=== PATIENT | male | born 2000 | race Caucasian/White ===

== ENCOUNTER 2018-06-01 17:51 | Emergency (ER) | payer OTHER ==
[2018-06-01] MEDS ORDERED: LORazepam 1 MG TAB PO ONE (18:25)
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
[2018-06-01 19:03] LABS: PLATELET COUNT 273 10^3/uL (150-400)
[2018-06-01] MEDS ORDERED: LORAZEPAM 1 MG PREPACK#4 BTL TAKEHOME ONE (22:29)
--- NOTE | 2018-06-01 22:41 | ASMTLCPROG ---
Notes Note: Notes: TLC consult. Met with pt. to offer referrals. Pt expressed a desire for d/c. Pt is denying any thoughts of self harm, harm to others and does not exhibit psychotic symptoms. Pt reports he took several Adderral pills early this am from a friend. Pt indicated he came to the ED due to concerns about his rapid heart beat. Pt declines need for substance abuse treatment. He may consider mental health support. Pt was provided with referrals to [facility] since pt is a student. [facility] also provided referral for 24 hour crisis center. Pt is wanting d/c so he can go home, sleep and attend am class tomorrow. Pt declined need for inpt treatment including SA treatment. Pt was discharged by ED Physician. He will return home in an Uber. Date Signed: 06/01/2018 10:40 PM Electronically Signed By:Yen Rolon
[2018-06-01 22:47] VITALS: BP 136/78
== END 2018-06-01 22:50 | disposition home or self-care (01) ==
DX: F31.9 Bipolar disorder, unspecified (principal); F15.90 Other stimulant use, unspecified, uncomplicated
CPT/HCPCS: 80305; G0480

== ENCOUNTER 2018-07-06 12:40 | Emergency (ER) | payer OTHER ==
--- NOTE | 2018-07-06 12:55 | EDPHY ---
H & P Smoking Status: Never smoked Time Seen by Provider: 07/06/18 12:54 HPI/ROS: CHIEF COMPLAINT: Mental health evaluation HISTORY OF PRESENT ILLNESS: Brought in by his mother. He was seen in our ED on June 01. His mother was called on Wednesday because the patient was slurring his speech and a roommates parents notified her. She took him to mental health outpatient emergency evaluation on Wednesday and they were referred for substance evaluation. Said he sometimes has suicidal thoughts but none currently and none at the time of that evaluation. This week he says he has been taking hydrocodone and possibly Xanax and not going to class and his mother says that his roommates describe him barely being able to stand up and walk. He is brought in because the mother is concerned he is gravely disabled from self medication with opioids and benzodiazepines for his bipolar disorder. Patient denies suicidal or homicidal ideation or hallucinations. He has taken Zyprexa in the past but says he has not for weeks or months. REVIEW OF SYSTEMS: Eye: no change in vision ENT: no sore throat Cardiac: no chest pain or syncope Pulmonary: no cough or SOB Abdomen: no vomiting, diarrhea, abdominal pain Musculoskeletal: no back pain or neck pain. Skin: Some scratches and abrasions Neuro: no headache Constitutional: no fever : no urinary symptoms A comprehensive 10 point review of systems is otherwise negative aside from elements mentioned in the history of present illness. PAST MEDICAL HISTORY: Bipolar disorder, previous ED visit 06/01/2018 Social history: Denies drugs or alcohol except for what is described in the HPI , here with his mother General Appearance: Alert and conversant, cooperative. Eyes: No scleral icterus. ENT, Mouth: Normal mucous membranes. No tongue laceration or abrasion. Respiratory: Normal respiratory effort, breath sounds equal, lungs are clear to auscultation. Cardiovascular: Regular rate and rhythm. Gastrointestinal: Abdomen is soft and non tender. Neurological: Alert, face symmetric, slightly slurred speech. His gait is slightly ataxic although his Romberg is negative and he is able to stand without assistance. Skin: Some superficial scratches and abrasions with no suturable lacerations or cellulitis. Musculoskeletal: No peripheral edema. Psychiatric: Denies homicidal or suicidal ideation, or hallucinations. Emergency Department course/MDM: Plan for screening labs and mental health evaluation. 1416: discussed with Yen lead radiation therapist. 1919: Patient is placed on a mental incapacity hold. His surrogate decision maker his mother would like him to be held for mental health evaluation which I think is appropriate. He has slurred speech and a toxicology screen positive for benzodiazepine and opioids, mental health evaluation after the effect of the drugs has decreased. Signed out to Marta with plan for mental health evaluation. (Terrell Mata) Constitutional: Initial Vital Signs Temperature (C) 37 C 07/06/18 12:45 Heart Rate 98 07/06/18 12:45 Respiratory Rate 16 07/06/18 12:45 Blood Pressure 105/75 07/06/18 12:45 O2 Sat (%) 94 07/06/18 12:45 O2 Delivery Mode Room Air Allergies/Adverse Reactions: peanut Allergy (Verified 07/06/18 12:44) Home Medications: Medication Instructions Recorded Vicodin 5-300 mg Tablet 07/06/18 Xanax 07/06/18 Zyprexa 07/06/18 Medical Decision Making ED Course/Re-evaluation: Patient's care was signed over to me. I see the patient at 10:00 p.m.. He is somewhat agitated in asking for medication to help him sleep. He will be given and Ativan and Zyprexa. I understand mental health evaluation will be in the morning. (Gustavo Lozano) No acute events overnight. 7:[address] over [address]. Gay. (Vahe Valentin) 7:00 a.m.-this patient was seen and evaluated by mental health. [place] appropriate for outpatient treatment of polysubstance abuse and bipolar disorder. He is not suicidal or homicidal. He will go home with his father. I agree with this plan. (Ludmila Gay) Care Turn Over: Care turned over to Dr. Valentin at 10:45 p.m. (Gustavo Lozano) - Data Points Laboratory Results: Laboratory Results 07/06/18 14:10 07/06/18 14:10 Medications Given: Discontinued Medications Lorazepam (Ativan) 1 mg PO EDNOW ONE Stop: 07/06/18 22:13 Last Admin: 07/06/18 22:16 Dose: 1 mg Olanzapine (Zyprexa Zydis) 5 mg PO EDNOW ONE Stop: 07/06/18 22:13 Last Admin: 07/06/18 22:16 Dose: 5 mg Departure - Departure Disposition: Home, Routine, Self-Care Clinical Impression: Polysubstance abuse Bipolar disorder Qualifiers: Active/Remission status: remission status unspecified Qualified Code(s): F31.9 - Bipolar disorder, unspecified Condition: Good Instructions: Bipolar Disorder (ED), Polysubstance Abuse (ED) Additional Instructions: Please avoid using illicit drugs or medications that are not prescribed for you. Return with any concerns. Follow-up with mental health as directed. Referrals: [facility],. [Clinic] - As per Instructions
[2018-07-06 14:22] LABS: PLATELET COUNT 207 10^3/uL (150-400)
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
--- NOTE | 2018-07-06 16:26 | ASMTTCLDSP ---
TLC Discharge Disposition Disposition: Answers: Discharge Disposition Notes: Notes: In consultation with [facility] ED, ED, [place] Remigio Zaman it was concurred that pt does not appear to meet 27-65 criteria requiring psychiatric hospitalization as pt does not appear to be an imminent risk of harm to self/others/gravely disabled due to a mental illness condition. Pt was offered voluntary mental health admission yet pt declined. Pt expressed an interest in voluntary admission for detox and is specifically interested in [facility]. Discharge Concerns/Recommendations: Notes: Pt is interested in voluntary detox Pt was provided with referrals and expressed interest in seeking treatment at [facility]. Pt was also provided with referral to [facility] as an alternative option. Date Signed: 07/06/2018 04:26 PM Electronically Signed By:Yen Rolon
--- NOTE | 2018-07-06 17:01 | ASMTLCPROG ---
Notes Note: Notes: Please disregard prior TLC evaluation and dispo documented on 07/06/18. Documentation for wrong pt. Date Signed: 07/06/2018 05:00 PM Electronically Signed By:Yen Rolon
[2018-07-06] MEDS ORDERED: LORazepam 1 MG TAB PO ONE (22:12)
[2018-07-06] MEDS ORDERED: OLANZapine DISINTEGR 5 MG TAB PO ONE (22:12)
[2018-07-07 07:45] VITALS: BP 120/81
--- NOTE | 2018-07-07 08:14 | ASMTTCLDSP ---
TLC Discharge Disposition Disposition: Answers: Discharge If Answers: Yes DISCHARGED: Patient/family given suicide hotline info & SAMHSA brochure? Disposition Notes: Notes: Pt stated commitment or ability to keep self safe, denied thoughts of self harm or harm to others. Pt expressed a desire to f/u with [facility] psychiatrist, Elliott Dawson MD and has next appointment on 07/13/18 at 10:30 a.m. Pt was given local hotline information and SAMHSA brochure After an Attempt and encouraged to follow up with [facility] psychiatrist. Discharge Concerns/Recommendations: Notes: In consultation with [facility] ED physician, Ludmila Gay MD, Dr. Gay concurred that pt does not appear to meet 27-65 criteria requiring psychiatric hospitalization as pt does not appear to be an imminent risk of harm to self/others/gravely disabled due to a mental illness condition. Was patient given the Answers: Not applicable Inpatient Behavioral Health Prohibited Belongings List while in the ED? Date Signed: 07/07/2018 08:14 AM Electronically Signed By:Blayne Hall
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
== END 2018-07-07 07:44 | disposition home or self-care (01) ==
DX: R47.81 Slurred speech (principal); F31.9 Bipolar disorder, unspecified; Z79.899 Other long term (current) drug therapy
CPT/HCPCS: 80305; G0480

== ENCOUNTER 2018-07-07 17:15 | Emergency (ER) | payer OTHER ==
[2018-07-07] MEDS ORDERED: NS 1,000 ML IV ONE (18:21)
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
[2018-07-07 18:57] LABS: PLATELET COUNT 206 10^3/uL (150-400)
--- NOTE | 2018-07-07 19:41 | CPEKG ---
Test Reason : OPEN Blood Pressure : / mmHG Vent. Rate : 080 BPM Atrial Rate : 080 BPM P-R Int : 148 ms QRS Dur : 105 ms QT Int : 362 ms P-R-T Axes : 068 074 056 degrees QTc Int : 418 ms Sinus rhythm Confirmed by Kalyan Carbone ([id number]) on 07/07/2018 7:41:16 PM Referred By: Confirmed By:Kalyan Carbone
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
--- NOTE | 2018-07-08 13:11 | ASMTTCLDSP ---
TLC Discharge Disposition Disposition: Answers: Transfer Disposition Notes: Notes: In consultation with [facility] ED Physician, Johan Galindo MD it was concurred that pt appears to meet 27-65 criteria regarding psychiatric hospitalization as pt appears to be at risk of harm to self due to a mental illness condition. Discharge Concerns/Recommendations: Notes: Pt transferred to Dual Dx program at [facility]. Type of Hold: Answers: M1/72-hour Hold Hold initiated by: Answers: ED Physician For Transfers, Accepting [facility] Facility: For Transfers, Accepting [facility] Psychiatrist: For Transfers, Reason Dual Dx bed Patient is Being Transferred: Date Signed: 07/08/2018 01:11 PM Electronically Signed By:Yen Rolon
[2018-07-08 15:05] VITALS: BP 111/68
== END 2018-07-08 15:05 ==
DX: F31.9 Bipolar disorder, unspecified (principal); F19.10 Other psychoactive substance abuse, uncomplicated; T42.4X4A Poisoning by benzodiazepines, undetermined, initial encounter; E86.9 Volume depletion, unspecified
CPT/HCPCS: 80305; G0480